=== PATIENT | female | born 1955 | race Caucasian/White ===

== ENCOUNTER → 2017-08-20 | Outpatient (CLI) | payer MEDICAID ==
--- NOTE | 2017-08-20 12:34 | MM ---
Reason for exam: additional evaluation requested from prior study. Last mammogram was performed 1 year and 2 months ago. History: Patient is postmenopausal, has history of breast cancer at age 51, and had previous chest radiation therapy at age 51. Cancelled Right Mammotome of the right breast, October 24, 2007. Radiation therapy of the left breast, September 2006. Excisional biopsy of the left breast, September 20, 2006. Malignant excisional biopsy of the left breast, September 20, 2006. Malignant lumpectomy of the left breast, September 20, 2006. Malignant left mammotome panel of the left breast, August 27, 2006. Took tamoxifen for 3 years 6 months beginning at age 51. Physical Findings: Nurse did not find any significant physical abnormalities on exam. MG 3D Diag Mammo W/Cad [facility]ON Bilateral CC and MLO view(s) were taken. Prior study comparison: June 16, 2016, bilateral MG 3d screening mammo w/cad. June 13, 2015, bilateral MG screening mammo w CAD. There are scattered fibroglandular densities. Finding: Architectural distortion in the lower quadrant of the left breast consistent with known lumpectomy changes. Asymmetric breast tissue in the left upper breast is stable. There is increasing distortion posterior upper quadrant. These results were verbally communicated with the patient and result sheet given to the patient on 08/20/17. ASSESSMENT: Incomplete: need additional imaging evaluation, BI-RAD 0 RECOMMENDATION: Ultrasound of the right breast.
--- NOTE | 2017-08-20 12:35 | USB ---
Reason for exam: additional evaluation requested from abnormal screening. History: Patient is postmenopausal, has history of breast cancer at age 51, and had previous chest radiation therapy at age 51. Cancelled Right Mammotome of the right breast, October 24, 2007. Radiation therapy of the left breast, September 2006. Excisional biopsy of the left breast, September 20, 2006. Malignant excisional biopsy of the left breast, September 20, 2006. Malignant lumpectomy of the left breast, September 20, 2006. Malignant left mammotome panel of the left breast, August 27, 2006. Took tamoxifen for 3 years 6 months beginning at age 51. US Breast Limited RT Right breast ultrasound demonstrates no cystic or solid lesion seen. These results were verbally communicated with the patient and result sheet given to the patient on 08/20/17. ASSESSMENT: Suspicious, BI-RAD 4 RECOMMENDATION: Stereotactic core biopsy of the right breast. Called Dr. Bonilla with mammographic findings and has scheduled an appointment for the patient for 09/29/16 at 4:[address] Pino. Biopsy scheduled for 09/06/17 at 8:00. PRELIMINARY REPORT CALLED AND FAXED TO DR. PINO ON 08/20/17.
== END | disposition home or self-care (01) ==
LOC: RADMAMWWP 07:01
PROVIDERS: ATTEND Obstetrics & Gynecology
DX: Z08 Encounter for follow-up examination after completed treatment for malignant neoplasm (principal); R92.8 Other abnormal and inconclusive findings on diagnostic imaging of breast; Z85.3 Personal history of malignant neoplasm of breast
CPT/HCPCS: 76642; G0204; G0279

== ENCOUNTER → 2021-03-18 | Outpatient (CLI) | payer MEDICARE ==
--- NOTE | 2021-03-18 15:18 | BD ---
EXAMINATION TYPE: Axial Bone Density DATE OF EXAM: 03/18/2021 COMPARISON: 05.31.2014 CLINICAL HISTORY: 65 YR OLD FEMALE: ICD-10 CODE: Z78.0 MENOPAUSAL STATE Height: 61.2 Weight: 136 FRAX RISK QUESTIONS: Current Tobacco Use: YES RISK FACTORS HISTORY OF: Diet low in dairy products/other sources of calcium: YES Postmenopausal woman: YES, AT AGE 54 YRS OLD Hyperparathyroidism: NO Adrenal Insufficiency: NO MEDICATIONS: Additional Medications: HX OF RADIATION, MULTIVITAMIN Additional History: HX OF LT BREAST CA, LUMPECTOMY, EXAM MEASUREMENTS: Bone mineral densitometry was performed using the [employer] System. Bone mineral density as measured about the Lumbar spine is: ----- L1-L4(G/cm2): 1.099 T Score Values are as follows: ----- L1: -1.2 ----- L2: -0.2 ----- L3: -0.6 ----- L4: -0.7 ----- L1-L4: -0.7 Bone mineral density has: Increased 2.8% SINCE: 05.31.2019 STUDY Bone mineral density about the R hip (g/cm2): 0.910 Bone mineral density about the L hip (g/cm2): 0.897 T Score values are as follows: -----R Neck: -0.8 -----L Neck: -1.2 -----R Total: -0.8 -----L Total: -0.9 Bone mineral density has: Decreased -4.7% SINCE: 05.31.2019 STUDY FRAX%s: THERE IS A 14.6% CHANCE FOR A MAJOR OSTEOPOROTIC FX AND A 2.4% FOR HIP........PROBABILITY FOR FX IN 10 YRS TIME IMPRESSION: No evidence for osteoporosis or osteopenia. NOTE: T-SCORE=SD OF THE YOUNG ADULT MEAN.
--- NOTE | 2021-03-21 13:06 | MM ---
Reason for exam: additional evaluation requested from prior study. Last mammogram was performed 3 years and 7 months ago. History: Patient is postmenopausal, has history of breast cancer at age 51, and had previous chest radiation therapy at age 51. Cancelled Right Mammotome of the right breast, October 24, 2007. Radiation therapy of the left breast, September 2006. Excisional biopsy of the left breast, September 20, 2006. Malignant excisional biopsy of the left breast, September 20, 2006. Malignant lumpectomy of the left breast, September 20, 2006. Malignant left mammotome panel of the left breast, August 27, 2006. Took tamoxifen for 3 years 6 months beginning at age 51. Physical Findings: Nurse did not find any significant physical abnormalities on exam. MG Diagnostic Mammo w CAD PELON Bilateral CC and MLO view(s) were taken. Prior study comparison: August 20, 2017, bilateral MG 3d diag mammo w/cad P[facility]. June 16, 2016, bilateral MG 3d screening mammo w/cad. The breast tissue is heterogeneously dense. This may lower the sensitivity of mammography. Stable post operative changes left breast. No significant new findings when compared with previous films. These results were verbally communicated with the patient and result sheet given to the patient on 03/18/21. ASSESSMENT: Benign, BI-RAD 2 RECOMMENDATION: Follow-up diagnostic mammogram of both breasts in 1 year.
== END | disposition home or self-care (01) ==
LOC: RADMAMWWP 13:03
PROVIDERS: ATTEND Family Medicine
DX: R92.2 Inconclusive mammogram (principal); Z78.0 Asymptomatic menopausal state; Z85.3 Personal history of malignant neoplasm of breast
CPT/HCPCS: 77066; 77080

== ENCOUNTER → 2023-05-11 | Outpatient (CLI) | payer MEDICARE ==
--- NOTE | 2023-05-12 19:20 | BD ---
EXAMINATION TYPE: Axial Bone Density DATE OF EXAM: 05/11/2023 CLINICAL HISTORY: 67 years old Female. ICD-10 CODE: Z12.31 screening mammogram,Z78.0 Height: 63.25" Weight: 133.8lbs FRAX RISK QUESTIONS: Alcohol (3 or more units per day): No Family History (Parent hip fracture): No Glucocorticoids (More than 3mos): No (Ex: prednisone, prednisolone, methylprednisolone, dexamethasone, and hydrocortisone). History of Fracture in Adulthood: No Secondary Osteoporosis: 1. Type 1 Diabetes: No 2. Hyperthyroidism: No 3. Menopause before 45: No 4. Malnutrition: No 5. Chronic liver disease: No Rheumatoid Arthritis: No Current Tobacco Use: Yes RISK FACTORS HISTORY OF: Hip Fracture (Right/Left): no Spine Fracture: No History of Wrist Fracture: NO Surgery to Spine/Hip(right/left)/Wrist (right/left): No Family History of Osteoporosis: No Active: Yes Diet low in dairy products/other sources of calcium: Yes Postmenopausal woman: Yes Lost more than 2 inches in height since high school: Yes Frequent falls: No Poor Health: No Hyperparathyroidism: No Adrenal Insufficiency: No MEDICATIONS: Prednisone or other steroids: No Thyroid Medications: No Osteoporosis Medications: No Additional Medications: Only takes a multivitamin Additional History: Hx of breast cancer with radiation EXAM MEASUREMENTS: Bone mineral densitometry was performed using the [employer] System. Bone mineral density as measured about the Lumbar spine is: ----- L1-L4(G/cm2): 1.117 T Score Values are as follows: ----- L1: -2.1 ----- L2: -2.1 ----- L3: 0.7 ----- L4: 0.8 ----- L1-L4: -0.5 Z Score Values are as follows: ----- L1: -0.3 ----- L2: -0.3 ----- L3: 2.5 ----- L4: 2.6 ----- L1-L4: 1.3 Bone mineral density has: increased 1.6% since study of: 03/18/2021 Bone mineral density about the R hip (g/cm2): 0.891 Bone mineral density about the L hip (g/cm2): 0.853 T Score values are as follows: -----R Neck: -1.0 -----L Neck: -1.4 -----R Total: -0.9 -----L Total: -1.2 Z Score values are as follows: -----R Neck: 0.8 -----L Neck: 0.4 -----R Total: 0.6 -----L Total: 0.3 Bone mineral density has: decreased -3.5% since study of: 03/18/2021 FRAX%s: The graph provided illustrates a 9.6% chance for a major osteoporotic fx and a 2.2% chance fo r the hips probability for fx in 10 years time. IMPRESSION: Osteopenia (T Score between -2.5 and -1). There is slightly increased risk of fracture and the patient may be considered for treatment. Re-Screen 2-5 years. NOTE: T-SCORE=SD OF THE YOUNG ADULT MEAN.
--- NOTE | 2023-05-13 08:24 | MM ---
Reason for Exam: Screening (asymptomatic). Last mammogram was performed 1 year(s) and 1 month(s) ago. Patient History: Menarche at age 13. First Full-Term at age 17. Postmenopausal. Breast cancer, left, age 51. Previous chest radiation therapy at age 51. Tamoxifen for 3 years, 6 months, from age 51 until age 54. 09/20/2006, Excisional Biopsy on the Left side. 09/20/2006, Malignant Excisional Biopsy on the left side. 09/20/2006, Malignant Lumpectomy on the left side. 08/27/2006, Malignant Core Biopsy on the left side. 09/2006, Radiation Therapy on the left side. 10/24/2007, Cancelled Right Mammotome on the right side. Prior Study Comparison: 08/20/2017 Bilateral Diagnostic Mammogram, [facility]. 03/18/2021 Bilateral Diagnostic Mammogram, [facility]. 04/14/2022 Bilateral MG diagnostic mammo w CAD PELON, [facility]. Tissue Density: The breast tissue is heterogeneously dense. This may lower the sensitivity of mammography. Findings: Analyzed By CAD. There is stable postoperative distortion left breast. There is a new group of microcalcifications inner upper right breast approximately 9.6 cm from the nipple. Spot magnification compression views are recommended. Overall Assessment: Incomplete: need additional imaging evaluation, BI-RAD 0 Management: Diagnostic Mammogram of the right breast. . Patient should continue monthly self-breast exams. A clinical breast exam by your physician is recommended on an annual basis. This exam should not preclude additional follow-up of suspicious palpable abnormalities. Note on Triny scores and lifetime risk: 1. A Triny score greater than 3% is considered moderate risk. If this is the case, consider specialist referral to assess eligibility for a risk reducing agent. 2. If overall lifetime risk for the development of breast cancer is 20% or higher, the patient may qualify for future screening with alternating mammogram and breast MRI. Electronically signed and approved by: Aristides Jaramillo M.D. Radiologis
== END | disposition home or self-care (01) ==
LOC: RADMAMWWP 10:57
PROVIDERS: ATTEND Family Medicine
DX: Z12.31 Encounter for screening mammogram for malignant neoplasm of breast (principal); M85.89 Other specified disorders of bone density and structure, multiple sites; Z78.0 Asymptomatic menopausal state; Z85.3 Personal history of malignant neoplasm of breast
CPT/HCPCS: 77063; 77067; 77080

== ENCOUNTER → 2024-05-12 | Outpatient (CLI) | payer MEDICARE ==
--- NOTE | 2024-05-12 13:39 | MM ---
Reason for Exam: Additional evaluation requested from prior study. Last screening mammogram was performed 12 month(s) ago. Patient History: Menarche at age 13. First Full-Term at age 17. Postmenopausal. Breast cancer, left, age 51. Previous chest radiation therapy at age 51. Tamoxifen for 3 years, 6 months, from age 51 until age 54. 09/20/2006, Excisional Biopsy on the Left side. 09/20/2006, Malignant Excisional Biopsy on the left side. 09/20/2006, Malignant Lumpectomy on the left side. 08/27/2006, Malignant Core Biopsy on the left side. 09/2006, Radiation Therapy on the left side. 10/24/2007, Cancelled Right Mammotome on the right side. Prior Study Comparison: 02/18/1995 Screening Mammogram, Unknown. 12/18/2009 Bilateral Diagnostic Mammogram, [facility]. 03/04/2011 Bilateral Screening Mammogram, [facility]. 03/08/2012 Bilateral Screening Mammogram, [facility]. 05/22/2013 Bilateral Diagnostic Mammogram, [facility]. 05/31/2014 Bilateral Screening Mammogram, [facility]. 06/13/2015 Bilateral Screening Mammogram, [facility]. 06/16/2016 Bilateral Screening Mammogram, [facility]. 07/01/2016 Right Diagnostic Ultrasound, [facility]. 08/20/2017 Bilateral Diagnostic Mammogram, [facility]. 08/20/2017 Right Diagnostic Ultrasound, [facility]. 03/18/2021 Bilateral Diagnostic Mammogram, [facility]. 04/14/2022 Bilateral MG diagnostic mammo w CAD PELON, [facility]. 05/11/2023 Bilateral MG 3D screening mammo w/cad, [facility]. 05/20/2023 Right MG 3D work up w/cad RT, [facility]. Tissue Density: There are scattered areas of fibroglandular density. Findings: Analyzed By CAD. The pattern is stable. Post surgical lumpectomy changes left breast. Left breast is slightly smaller than the right. No suspicious groups of microcalcifications, spiculated or lobular masses, architectural distortion or other secondary signs of malignancy are mammographically apparent. Overall Assessment: Benign, BI-RAD 2 Management: Screening Mammogram of both breasts in 1 year. A negative mammogram report should not preclude additional follow up of suspicious palpable abnormalities. Patient should continue monthly self breast exam. A clinical breast exam by your physician is recommended on an annual basis and results should be correlated with mammographic findings. Note on Triny scores and lifetime risk: 1. A Triny score greater than 3% is considered moderate risk. If this is the case, consider specialist referral to assess eligibility for a risk reducing agent. 2. If overall lifetime risk for the development of breast cancer is 20% or higher, the patient may qualify for future screening with alternating mammogram and breast MRI. [facility], , 05/12/2024 1:36 PM. Electronically signed and approved by: Matt Avila D.O. Radiologis
== END | disposition home or self-care (01) ==
LOC: RADMAMWWP 13:03
PROVIDERS: ATTEND Family Medicine
CPT/HCPCS: 77062; 77066